=== PATIENT | male | born 1985 | race Caucasian/White ===

== ENCOUNTER 2021-10-31 09:07 | Day surgery (SDC) | payer OTHER ==
[~2021-10-31] VITALS: Ht 185.4 cm; Wt 110.8 kg
[2021-10-31] MEDS ORDERED: MIRALAX PA17 GM/Dose PO (09:55)
[2021-10-31 10:07] VITALS: BP 110/63; PULSE 56; TEMP 97.7
[2021-10-31 11:45] VITALS: BP 108/67; PULSE 69; TEMP 97.5
--- NOTE | 2021-10-31 11:45 | NUR ---
PATIENT TRANSPORED PER CART FROM GI SUITE TO BAY 4 ACCOMPANIED BY ENDO RN. PATIENT AWAKE AND TALKING WITH STAFF. PATIENT AMBULATED FROM CART TO CHAIR WITH 1 ASSIST. SLOW STEADY GAIT. MONITORS APPLIED. VSS ON ROOM AIR. PATIENT TALKS WITH . PATIENT REQUESTS SALTINE CRACKERS AND COFFEE.
[2021-10-31 12:00] VITALS: BP 120/75; PULSE 54
--- NOTE | 2021-10-31 12:00 | NUR ---
VSS ON ROOM AIR. DR MALAGON SPEAKS WITH PATIENT AND . PATIENT TOLERATES FOOD AND DRINK WITHOUT PROBLEMS. PATIENT TALKS WITH AND STAFF. SPIPPING ON COFFEE
[2021-10-31 12:15] VITALS: BP 110/63; PULSE 61
--- NOTE | 2021-10-31 12:20 | NUR ---
VSS ON ROOM AIR PATEINT TOLERATES FOOD AND DRINK WITHOUT PROBLEMS. PATIENT TALKING WITH . 1220 IV DC'D WITH CATHETER TIP INTACT. PRESSURE AND BANDAGE APPLIED. 1228 DISCHARGE INSTRUCTIONS GIVEN VERBAL AND DISCHARGE PACKET PROVIDED. QUESTIONS ANSWERED AND PATIENT AND VOICED UNDERSTANDING. PATIENT CHANGES INTO STREET CLOTHES.
== END 2021-10-31 12:30 | disposition home or self-care (01) ==
LOC: SDCO 09:07
DX: K63.5 Polyp of colon (principal); K62.1 Rectal polyp; K59.00 Constipation, unspecified; Z83.71 Family history of colonic polyps; Z80.0 Family history of malignant neoplasm of digestive organs
CPT/HCPCS: J2704; J3010; J7030